=== PATIENT | female | born 1990 | race American Indian/Alaskan Native ===

== ENCOUNTER 2019-03-21 13:58 | Emergency (ER) | payer SELFPAY ==
[2019-03-21 14:32] VITALS: BP 121/87
--- NOTE | 2019-03-21 14:38 | Event Note ---
ED Screening Note Date of service: 03/21/19 ED Screening Note: This initial assessment/diagnostic orders/clinical plan/treatment(s) is/are subject to change based on patients health status, clinical progression and re- assessment by fellow clinical providers in the ED. Further treatment and workup at subsequent clinical providers discretion. Patient/guardian urged not to elope from the ED as their condition may be serious if not clinically assessed and managed. Initial orders include: C-XRAY
--- NOTE | 2019-03-21 15:09 | XRay Report ---
CHEST 2 VIEWS INDICATION / CLINICAL INFORMATION: MAIN: cough; Pt c/o of cold like symptoms sob pain with coughing with bodyache that have worsen over the last few day. . COMPARISON: None available. FINDINGS: SUPPORT DEVICES: None. HEART / MEDIASTINUM: No significant abnormality. LUNGS / PLEURA: No significant pulmonary or pleural abnormality. No pneumothorax. ADDITIONAL FINDINGS: No significant additional findings. IMPRESSION: 1. No acute findings. Signer Name: Rafaela Chand MD Signed: 03/21/2019 3:05 PM Workstation Name: [id number]
== END 2019-03-21 18:00 | disposition left against medical advice (07) ==
LOC: ED 13:58
DX: R06.02 Shortness of breath (principal); Z53.21 Procedure and treatment not carried out due to patient leaving prior to being seen by health care provider
CPT/HCPCS: 71046